=== PATIENT | male | born 1960 | race Caucasian/White ===

== ENCOUNTER 2017-11-22 10:29 | Day surgery (SDC) | payer OTHER ==
[~2017-11-22] VITALS: Ht 167.6 cm; Wt 82.3 kg
[~2017-11-22 10:29] MED LIST: CYCL10; GLYB3; IBUP800; LISI5 PO; METF850 PO; PSEU120ER PO
[2018-05-24] MEDS ORDERED: CLIN150 PO (19:32)
[2018-05-24] MEDS ORDERED: Triamcinolone A15 G3 TOP (22:39)
[2018-05-24] MEDS ORDERED: Centrum Silver1 EAC1 PO (22:40)
[2018-05-24] MEDS ORDERED: CYCL10 PO (22:41)
[2018-05-26] MEDS ORDERED: CYCL10 PO (07:54)
[2018-05-26] MEDS ORDERED: NAPR500 PO (15:21)
[2018-05-26] MEDS ORDERED: CEPH500 PO (15:22)
== END 2017-11-22 14:00 | disposition home or self-care (01) ==
LOC: ORSCSDS 10:29
PROVIDERS: Ophthalmology
PROC: 08RK3JZ Replacement of Left Lens with Synthetic Substitute, Percutaneous Approach (ICD-10-PCS; principal; 2017-11-22 12:30)
DX: H25.12 Age-related nuclear cataract, left eye (principal); E11.9 Type 2 diabetes mellitus without complications; I10 Essential (primary) hypertension; Z79.84 Long term (current) use of oral hypoglycemic drugs; Z79.899 Other long term (current) drug therapy; Z87.891 Personal history of nicotine dependence
CPT/HCPCS: 82947; J2250; J3010; J7040; V2632

== ENCOUNTER 2018-01-05 05:15 | Emergency (ER) | payer OTHER ==
[~2018-01-05] VITALS: Ht 167.6 cm; Wt 79.4 kg
[2018-01-05] MEDS ORDERED: Glyburide5 MG PO (05:31)
[2018-01-05 05:45] LABS: BASOPHILS ABSOLUTE AUTO 0.11 K/mm3 (0.00-0.23); BASOPHILS PERCENT AUTO 1 % (0-2); EOSINOPHILS ABSOLUTE AUTO 0.31 K/mm3 (0.00-0.68); EOSINOPHILS PERCENT AUTO 3 % (0-6); Hemoglobin 16.3 g/dL (13.5-17.5); IMMATURE GRAN ABSOLUTE AUTO 0.05 K/mm3 (0.00-0.10); IMMATURE GRAN PERCENT AUTO 1 % (0-1); LYMPHOCYTES ABSOLUTE AUTO 2.14 K/mm3 (0.84-5.20); LYMPHOCYTES PERCENT AUTO 24 % (21-46); MONOCYTES ABSOLUTE AUTO 0.85 K/mm3 (0.16-1.47); MONOCYTES PERCENT AUTO 9 % (4-13); Mean Corpuscular HGB 30.9 pg (26.0-34.0); Mean Corpuscular HGB Conc 34.7 g/dL (31.5-36.5); Mean Corpuscular Volume 89 fL (80-100); Mean Platelet Volume 8.9 fL (9.1-12.4); NEUTROPHILS ABSOLUTE AUTO 5.64 K/mm3 (1.96-9.15); NEUTROPHILS PERCENT AUTO 62 % (41-73); Platelet Count 225 K/mm3 (150-400); RDW Coefficient Variation 11.8 % (11.7-14.2); RDW Standard Deviation 37.9 fL (35.1-46.3); Red Blood Cell Count 5.28 M/mm3 (4.30-5.90)
[2018-01-05 06:08] LABS: Alanine Aminotransfer (ALT/SGP 18 U/L (12-78); Albumin/Globulin Ratio 1.1 (0.8-1.8); Alk Phos 159 U/L (50-136); Anion Gap 8 mmol/L (6-16); Aspartate Aminotrans (AST/SGOT 8 U/L (12-37); Bilirubin, Total 0.6 mg/dL (0.1-1.0); Blood Urea Nitrogen 16 mg/dL (8-24); Bun/Creatinine Ratio 22.6 (12.0-20.0); CO2, Blood 26 mmol/L (21-32); Chloride, Blood 102 mmol/L (98-108); Creatinine, Blood 0.71 mg/dL (0.60-1.20); Globulin, Blood 3.7 g/dL (2.2-4.0); Glomerular Filtration Rate >60 (60-); Glucose, Blood 229 mg/dL (70-99); Sodium, Blood 136 mmol/L (136-145); Total Protein, Blood 7.7 g/dL (6.4-8.2); Troponin I <0.015 ng/mL (0.000-0.040)
[2018-05-24] MEDS ORDERED: CLIN150 PO (19:32)
[2018-05-24] MEDS ORDERED: Triamcinolone A15 G3 TOP (22:39)
[2018-05-24] MEDS ORDERED: Centrum Silver1 EAC1 PO (22:40)
[2018-05-24] MEDS ORDERED: CYCL10 PO (22:41)
[2018-05-26] MEDS ORDERED: CYCL10 PO (07:54)
[2018-05-26] MEDS ORDERED: NAPR500 PO (15:21)
[2018-05-26] MEDS ORDERED: CEPH500 PO (15:22)
== END 2018-01-05 08:18 | disposition home or self-care (01) ==
LOC: ER 05:15
PROVIDERS: Emergency Medicine
DX: R07.2 Precordial pain (principal); I10 Essential (primary) hypertension; E11.9 Type 2 diabetes mellitus without complications; E78.5 Hyperlipidemia, unspecified; Z88.5 Allergy status to narcotic agent; Z79.899 Other long term (current) drug therapy; Z79.84 Long term (current) use of oral hypoglycemic drugs; Z87.891 Personal history of nicotine dependence
CPT/HCPCS: 36415; 71046; 80053; 84484; 85025; 93005; 93010; 99283